=== PATIENT | male | born 1995 | race Two or more races ===

== ENCOUNTER → 2020-01-12 | Outpatient (CLI) | payer OTHER | END | disposition home or self-care (01) | LOC: LAB 13:05 | PROVIDERS: ATTEND Nurse Practitioner Family | DX: Z20.828 Contact with and (suspected) exposure to other viral communicable diseases (principal) | CPT/HCPCS: C9803; U0003 ==

== ENCOUNTER 2020-03-11 07:59 | Emergency (ER) | payer OTHER ==
[~2020-03-11] VITALS: Ht 177.8 cm; Wt 71.7 kg
[2020-03-11 08:33] VITALS: BP 127/71
== END 2020-03-11 09:24 | disposition home or self-care (01) ==
LOC: ER 07:59 → EEVIPCON 07:59 → ER 09:24
DX: R51.9 Headache, unspecified (principal); H60.91 Unspecified otitis externa, right ear; W00.0XXA Fall on same level due to ice and snow, initial encounter; Y93.89 Activity, other specified; Y92.89 Other specified places as the place of occurrence of the external cause; Y99.8 Other external cause status
CPT/HCPCS: 70450

== ENCOUNTER 2020-03-20 10:07 | Emergency (ER) | payer OTHER ==
[~2020-03-20] VITALS: Ht 177.8 cm; Wt 71.2 kg
[2020-03-20 10:12] VITALS: BP 112/70
== END 2020-03-20 11:42 | disposition home or self-care (01) ==
LOC: EEVIPCON 10:07 → ER 10:07
DX: S09.90XD Unspecified injury of head, subsequent encounter (principal); X58.XXXD Exposure to other specified factors, subsequent encounter
CPT/HCPCS: 70450

== ENCOUNTER 2020-08-27 07:56 | Emergency (ER) | payer OTHER ==
[~2020-08-27] VITALS: Ht 177.8 cm; Wt 72.6 kg
[2020-08-27] MEDS ORDERED: cefTRIAXone 1GM/50ML D5W 50 ML IV ONE (08:15)
[2020-08-27] MEDS ORDERED: methylPREDNISolone SOD SUCC 125 MG/2 ML VL IV ONE (08:15)
[2020-08-27] MEDS ORDERED: SODIUM CHLORIDE 0.9% 1,000 ML IV ONE (08:15)
[2020-08-27 08:22] VITALS: BP 123/69
[2020-08-27 08:59] LABS: BUN/Creatinine Ratio 19.2; Calcium 8.4 mg/dL (8.5-10.1); Potassium 4.1 mmol/L (3.5-5.1)
[2020-08-27 09:43] LABS: Hemoglobin 13.9 g/dL (13.5-17.5); Mean Corpuscular Hemoglobin 31.2 pg (28.0-32.0); Mean Corpuscular Volume 85.9 fL (80.0-100.0); Red Blood Cells 4.46 10^6/uL (4.5-5.90); Red Cell Distribution Width 13.3 % (11.8-14.3); White Blood Cell 8.5 10^3/uL (4.4-10.8)
[2020-08-27 09:46] LABS: Hematocrit 38.7 % (41.0-53.0)
[2020-08-27 09:48] LABS: Basophils % (manual) 0 (0.0-2.0); Blast Cells 0; Monocytes % (manual) 0 (0-12); Myelocytes % 0; Promyelocytes % 0
[2020-08-27 11:46] LABS: Band Neutrophils % (manual) 3; Lymphocytes % (manual) 44 (10.0-50.0)
[2020-08-27 11:47] LABS: Eosinophils % (manual) 1 (0-7); Metamyelocytes % 1; Reactive Lymphocytes 7
== END 2020-08-27 10:34 | disposition home or self-care (01) ==
LOC: ER 07:56
DX: J01.90 Acute sinusitis, unspecified (principal); J03.90 Acute tonsillitis, unspecified; H92.01 Otalgia, right ear
CPT/HCPCS: 36415; 71046; 80048; 85007; 85027; 85049; 87070; 87880; 96365; 96375; 99284; J0696; J2930; J7030

== ENCOUNTER 2022-08-30 13:46 | Emergency (ER) | payer BC, OTHER ==
[~2022-08-30] VITALS: Ht 177.8 cm; Wt 79.5 kg
[2022-08-30] MEDS ORDERED: IOHEXOL 300 MG/ML 100ML BOTTLE IJ ONE (14:10)
[2022-08-30] MEDS ORDERED: SODIUM CHLORIDE 0.9% 1,000 ML IV ONE (14:15)
[2022-08-30 14:17] LABS: Basophils # (auto) 0 10 ^3/uL (0-0.2); Basophils % (auto) 0.3 % (0.0-2.0); Eosinophils # (auto) 0.1 10 ^3/uL (0-0.8); Eosinophils % (auto) 1.4 % (0.0-7.0); Hematocrit 48.6 % (41.0-53.0); Hemoglobin 17.3 g/dL (13.5-17.5); Lymphocytes # (auto) 1.5 10 ^3/uL (0.4-5.4); Lymphocytes % (auto) 22.4 % (10.0-50.0); Mean Corpuscular Hemoglobin 30.9 pg (28.0-32.0); Mean Corpuscular Hgb Conc. 35.6 g/dL (32.0-36.0); Mean Corpuscular Volume 86.8 fL (80.0-100.0); Monocytes # (auto) 0.9 10 ^3/uL (0-1.3); Monocytes % (auto) 13.3 % (0.0-12.0); Neutrophils # (auto) 4.1 10 ^3/uL (1.6-8.6); Neutrophils % (auto) 62.6 % (37.0-80.0); Nucleated Red Blood Cells % 0.4 %; Red Cell Distribution Width 12.9 % (11.8-14.3); White Blood Cell 6.6 10^3/uL (4.4-10.8)
[2022-08-30 15:10] LABS: Albumin 4.4 g/dL (3.4-5.0); Calcium 8.7 mg/dL (8.5-10.1); Potassium 3.4 mmol/L (3.5-5.1)
[2022-08-30] MEDS ORDERED: CIPR-173 PO (15:13)
[2022-08-30 15:15] LABS: BUN/Creatinine Ratio 13.1 (10.0-20.0); Bilirubin, Total 0.9 mg/dL (0.2-1.0); Total Protein 8.1 g/dL (6.4-8.2)
[2022-08-30 15:34] VITALS: BP 120/61
[2022-08-30 15:53] LABS: Urine Bacteria NONE SEEN /hpf (None Seen); Urine Blood Negative /uL (Negative); Urine WBC <1 /hpf (0 - 3)
[2022-08-30 15:57] LABS: Urine Specific Gravity > 1.050 (1.001-1.035)
== END 2022-08-30 16:05 | disposition home or self-care (01) ==
LOC: EEVIPCON 13:46 → ER 13:46
DX: K52.9 Noninfective gastroenteritis and colitis, unspecified (principal); Z88.1 Allergy status to other antibiotic agents; Z90.49 Acquired absence of other specified parts of digestive tract
CPT/HCPCS: 36415; 74177; 80053; 81001; 82150; 83690; 85025; 96360; 99285; J7030; Q9967

== ENCOUNTER 2023-11-17 13:50 | Emergency (ER) | payer BC ==
[~2023-11-17] VITALS: Ht 177.8 cm; Wt 80.3 kg
[~2023-11-17 13:50] MED LIST: CIPR-173 PO
[2023-11-17 14:58] LABS: Urine Bacteria None Seen /hpf (None Seen)
[2023-11-17 15:06] VITALS: TEMP 98
[2023-11-17 15:13] LABS: Urine Blood TRACE /uL (Negative); Urine Clarity Clear (Clear); Urine Color Colorless (Yellow); Urine Protein, UAD Negative (Negative); Urine Specific Gravity 1.007 (1.001-1.035); Urine Urobilinogen Normal (Negative); Urine WBC <1 /hpf (0 - 3)
[2023-11-17] MEDS: ONDANSETRON HCL 4 MG/2 ML VIAL IV ONE (15:13)
[2023-11-17] MEDS: MEPERIDINE HCL (25 MG/ML) 1ML VIAL IV ONE (15:37)
[2023-11-17] MEDS: SODIUM CHLORIDE 0.9% 1,000 ML IV ONE (15:37)
[2023-11-17] MEDS ORDERED: CYCL-839 PO (16:40)
[2023-11-17] MEDS ORDERED: HYDR-4902 PO (16:40)
[2023-11-17 16:42] VITALS: BP 103/58; PULSE 63; RESP 16; O2SAT 98
== END 2023-11-17 16:59 | disposition home or self-care (01) ==
LOC: EEVIPCON 13:50 → ER 13:50
DX: S16.1XXA Strain of muscle, fascia and tendon at neck level, initial encounter (principal); Z79.899 Other long term (current) drug therapy; Z90.49 Acquired absence of other specified parts of digestive tract; Z88.1 Allergy status to other antibiotic agents; X50.0XXA Overexertion from strenuous movement or load, initial encounter; Y93.89 Activity, other specified; Y92.89 Other specified places as the place of occurrence of the external cause; Y99.8 Other external cause status
CPT/HCPCS: 72125; 72128; 81001; 96361; 96374; 96375; 99285; J2175; J2405; J7030

== ENCOUNTER 2024-01-25 22:12 | Emergency (ER) | payer BC ==
[~2024-01-25] VITALS: Ht 175.3 cm; Wt 81.0 kg
[~2024-01-25 22:12] MED LIST changes: +CYCL-839 PO; +HYDR-4902 PO
--- NOTE | 2024-01-25 22:38 | ED.PDOC ---
GI ASSESSMENT HPI Comments 28 year old male came to ER due to abdominal pain. Patient states few hours ago, he started having episodes of loose watery diarrhea, followed by nausea, vomiting and cramping epigastric abdominal pain. Chief Complaint: Abdominal Pain Time Seen by MD: 22:37 Primary Care Provider: [facility] Reviewed Notes: Nurses Notes Allergies: Coded Allergies: Amoxicillin (Verified Allergy, Unknown, 08/30/22) Penicillins (Verified Allergy, Unknown, 01/25/24) Home Meds Active Scripts Loperamide Hcl (Imodium) 2 Mg Cp, 2 MG PO Q4HP PRN for 10 Days, #30 CAP Prov:ADELITA GRAVES MD 01/26/24 Ondansetron Odt 4MG Tab (ZOFRAN PO) 4 Mg Tb, 8 MG PO Q6HP PRN for 10 Days, #40 T AB ODT TAB-DISSOLVE IN MOUTH, THEN SWALLOW Prov:ADELITA GRAVES MD 01/26/24 Hydrocodone-Acetaminophen (Hydrocodone Bitartrate/AC 5-325 mg) 1 Tab Tab, 1 TAB PO BID, #20 TAB Prov:DRE WALTON 11/17/23 Cyclobenzaprine Hcl (Cyclobenzaprine Hcl) 10 Mg Tab, 10 MG PO BID, #30 TAB Prov:DRE WALTON 11/17/23 Ciprofloxacin Hcl (Cipro) 500 Mg Tab, 1 TAB PO BID, #14 TAB Prov:PAULA LUO MD 08/30/22 Information Source: Patient Mode of Arrival: Ambulatory Timing: Hours Duration: Since onset Prehospital treatment: None Quality: Aching, Cramping Vomitus: Watery Stool: Loose, Watery Severity: Moderate Recent: Possible spoiled food Recent Hx of: Abdominal Surgery Pain Location: Epigastric Modifying Factors: Nothing Associated sign and symptoms: Nausea, Vomiting, Diarrhea, Abdominal Pain Past Medical History Past Medical History (Other): Henoch Schonlein Purpura Surgical History: Appendectomy Family History Family History: Reviewed,noncontributory to illness Social History Smoker: Non-Smoker Alcohol: Occasionally Drugs: Denies Drug Use Lives In: Home Constitutional: reports: fatigue, weakness; denies: chills, diaphoresis, fever, malaise, sweats, others EENTM: denies: blurred vision, double vision, ear bleeding, ear discharge, ear drainage, ear pain, ear ringing, eye pain, eye redness, hearing loss, mouth pain, mouth swelling, nasal discharge, nose bleeding, nose congestion, nose pain, photophobia, tearing, throat pain, throat swelling, voice changes, others Respiratory: denies: cough, hemoptysis, orthopnea, SOB at rest, shortness of breath, SOB with excertion, stridor, wheezing, others Cardiovascular: denies: chest pain, dizzy spells, diaphoresis, Dyspnea on exertion, edema, irregular heart beat, left arm pain, lightheadedness, pa lpitations, PND, syncope, others Gastrointestinal: reports: abdominal pain, diarrhea, nausea, vomiting; denies: abdomen distended, blood streaked bowels, constipated, dysphagia, difficulty swallowing, hematemesis, melena, poor appetite, poor fluid intake, rectal bleeding, rectal pain, others Genitourinary: denies: burning, dysuria, flank pain, frequency, hematuria, incontinence, penile discharge, penile sore, pain, testicle pain, testicle swelling, urgency, others Neurological: denies: dizziness, fainting, headache, left sided numbness, left sided weakness, numbness, paresthesia, pre-existing deficit, right sided numbness, right sided weakness, seizure, speech problems, tingling, tremors, weakness, others Musculoskeletal: denies: back pain, gout, joint pain, joint swelling, muscle pain, muscle stiffness, neck pain, others Integumetry: denies: bruises, change in color, change in hair/nails, dryness, laceration, lesions, lumps, rash, wounds, others Allergic/Immunocompromised: denies: Difficulty Healing, Frequent Infections, Hives, Itching, others Hematologic/Lymphatic: denies: anemia, blood clots, easy bleeding, easy bruising, swollen glands, others Endocrine: denies: excessive hunger, excessive sweating, excessive thirst, excessive urination, flushing, intolerance to cold, intolerance to heat, unexplained weight gain, unexplained weight loss, others Psychiatric: denies: anxiety, bipolar disorder, depression, hopeless, panic disorder, schizophrenia, sleepless, suicidal, others Physical Exam General Appearance: Moderate Distress, Normal HEENT: Normal ENT Inspection, Pharynx Normal, TMs Normal Neck: Full Range of Motion, Non-Tender, Normal, Normal Inspection Respiratory: Chest Non-Tender, Lungs Clear, No Accessory Muscle Use, No Respiratory Distress, Normal Breath Sounds Cardiovascular: No Edema, No JVD, No Murmur, No Gallop, Normal Peripheral Pulses, Regular Rate/Rhythm Breast Exam: Deferred Gastrointestinal: Abnormal Bowel Sounds, Non Tender, Soft Genitalia: Deferred Pelvic: Deferred Rectal: Deferred Extremities: No calf tenderness, Normal capillary refill, Normal inspection, Normal range of motion, Non-tender, No pedal edema Musculoskeletal : Apperance: Normal Neurologic: Alert, head of sales promotion II-XII nml as Tested, No Motor Deficits, Normal Affect, Normal Mood, No Sensory Deficits Cerebellar Function: Normal Reflexes: Normal Skin: Dry, Normal Color, Warm Lymphatic: No Adenopathy Was a procedure done? Was a procedure done?: No GI differential Dx Differential Diagnosis: Diverticular disease, Gastritis/PUD, Gastroenteritis, Dehydration, Electrolyte Imbalance, Food Poisoning X-Ray, Labs, Meds, VS Vital Signs Date Time Temp Pulse Resp B/P (MAP) Pulse Ox O2 Delivery O2 Flow Rate FiO2 01/25/24 23:19 92/47 (62) 01/25/24 23:16 Room Air* 0 21 01/25/24 23:10 97.5 102 20 74/33 (47) 97 97.5 01/25/24 22:30 100.1 105 18 106/64 (78) 99 Lab Test 01/26/24 00:14 01/25/24 22:50 Range/Units White Blood Count 16.5 H 4.4-10.8 10^3/uL Red Blood Count 5.30 4.5-5.90 10^6/uL Hemoglobin 16.3 13.5-17.5 g/dL Hematocrit 47.2 41.0-53.0 % Mean Corpuscular Volume 89.0 80.0-100.0 fL Mean Corpuscular Hemoglobin 30.7 28.0-32.0 pg Mean Corpuscular Hemoglobin Concent 34.5 32.0-36.0 g/dL Red Cell Distribution Width 13.4 11.8-14.3 % Platelet Count 141 140-450 10^3/uL Mean Platelet Volume 7.9 6.9-10.8 fL Neutrophils (%) (Auto) 88.8 H 37.0-80.0 % Lymphocytes (%) (Auto) 4.1 L 10.0-50.0 % Monocytes (%) (Auto) 6.5 0.0-12.0 % Eosinophils (%) (Auto) 0.4 0.0-7.0 % Basophils (%) (Auto) 0.2 0.0-2.0 % Neutrophils # (Auto) 14.7 H 1.6-8.6 10 ^3/uL Lymphocytes # (Auto) 0.7 0.4-5.4 10 ^3/uL Monocytes # (Auto) 1.1 0-1.3 10 ^3/uL Eosinophils # (Auto) 0.1 0-0.8 10 ^3/uL Basophils # (Auto) 0 0-0.2 10 ^3/uL Nucleated Red Blood Cells 0.0 % Sodium Level 141 136-145 mmol/L Potassium Level 3.9 3.5-5.1 mmol/L Chloride Level 104 98-107 mmol/L Carbon Dioxide Level 25 20-31 mmol/L Anion Gap 12 5-15 Blood Urea Nitrogen 10 9-23 mg/dL Creatinine 1.48 H 0.700-1.30 mg/dL Glomerular Filtration Rate Calc 66 >90 mL/min BUN/Creatinine Ratio 6.8 L 10.0-20.0 Serum Glucose 128 H 74-106 mg/dL Calcium Level 11.1 H 8.7-10.4 mg/dL Magnesium Level 2.3 1.6-2.6 mg/dL Total Bilirubin 1.1 H 0.2-1.0 mg/dL Aspartate Amino Transferase (AST) 40 13-40 U/L Alanine Aminotransferase (ALT) 75 H 7-40 U/L Alkaline Phosphatase 109 46-116 U/L Total Protein 9.1 H 5.7-8.2 g/dL Albumin 5.8 H 3.2-4.8 g/dL Current Medications Medications (Trade) Dose Ordered Sig/Grupo Route Start Time Stop Time Status Last Admin Ondansetron HCl (Zofran) 4 mg ONCE ONCE IV 01/25/24 22:45 01/25/24 22:46 DC 01/25/24 22:58 Sodium Chloride 1,000 ml @ 1,000 mls/hr Q1H ONCE IVB 01/25/24 22:45 01/25/24 23:44 DC 01/25/24 22:55 Acetaminophen (Tylenol Tablet) 1,000 mg ONCE ONCE PO 01/25/24 22:45 01/25/24 22:46 DC 01/25/24 23:10 Loperamide HCl (Imodium Capsule) 4 mg ONCE ONCE PO 01/25/24 22:45 01/25/24 22:46 DC 01/25/24 23:03 Sodium Chloride 1,000 ml @ 1,000 mls/hr Q1H ONCE IV 01/25/24 23:30 01/26/24 00:29 DC 01/25/24 23:29 Time of 1ST Reevaluation: 22:34 Reevaluation 1ST: Unchanged Time of 2ND Reevaluation: 00:25 Reevaluation 2ND: Improved Patient Education/Counseling: Diagnosis, Treatment Family Education/Counseling: Diagnosis, Treatment Sepsis Sepsis Reasesment Focused Exam Sepsis focused exam: focus exam completed, time: (29) Departure 1 Departure Time of Disposition: 00:55 Impression: Primary Impression: Nausea vomiting and diarrhea Additional Impression: Dehydration Disposition: 01 HOME / SELF CARE / HOMELESS Condition: Stable e-Prescriptions Loperamide Hcl (Imodium) 2 Mg Cp 2 MG PO Q4HP PRN for 10 Days, #30 CAP Prov: ADELITA GRAVES MD 01/26/24 Ondansetron Odt 4MG Tab (ZOFRAN PO) 4 Mg Tb 8 MG PO Q6HP PRN for 10 Days, #40 TAB ODT TAB-DISSOLVE IN MOUTH, THEN SWALLOW Prov: ADELITA GRAVES MD 01/26/24 Discharged With: Self Critical Care Note Critical Care Time?: No Stability Stability form required: No Heart Score Heart Score: Heart Score Response (Comments) Value History N/A 0 EKG N/A 0 Age N/A 0 Risk Factors N/A 0 Troponin N/A 0 Total 0 I personally scribed for ADELITA GRAVES MD ([email or web address]) on 01/25/24 at 22:38. Electronically submitted by Olaf Owens ([email or web address]). ADELITA GRAVES MD Jan 25, 2024 22:38
[2024-01-25] MEDS: SODIUM CHLORIDE 0.9% 1,000 ML IVB ONE (22:55)
[2024-01-25] MEDS: ONDANSETRON HCL 4 MG/2 ML VIAL IV ONE (22:58)
[2024-01-25] MEDS: LOPERAMIDE HCL 2 MG CAP/TAB PO ONE (23:03)
[2024-01-25] MEDS: ACETAMINOPHEN 500 MG TAB PO ONE (23:10)
[2024-01-25] MEDS: SODIUM CHLORIDE 0.9% 1,000 ML IV ONE (23:29)
[2024-01-25 23:34] LABS: Alanine Aminotransferase 75 U/L (7-40); Albumin 5.8 g/dL (3.2-4.8); Alkaline Phosphatase 109 U/L (46-116); Anion Gap 12 (5-15); Aspartate Aminotransferase 40 U/L (13-40); BUN/Creatinine Ratio 6.8 (10.0-20.0); Blood Urea Nitrogen 10 mg/dL (9-23); Calcium 11.1 mg/dL (8.7-10.4); Carbon Dioxide 25 mmol/L (20-31); Chloride 104 mmol/L (98-107); Glucose 128 mg/dL (74-106); Magnesium 2.3 mg/dL (1.6-2.6); Potassium 3.9 mmol/L (3.5-5.1); Sodium 141 mmol/L (136-145)
[2024-01-25 23:35] LABS: Bilirubin, Total 1.1 mg/dL (0.2-1.0); Total Protein 9.1 g/dL (5.7-8.2)
[2024-01-26 00:30] LABS: Basophils # (auto) 0 10 ^3/uL (0-0.2); Basophils % (auto) 0.2 % (0.0-2.0); Eosinophils # (auto) 0.1 10 ^3/uL (0-0.8); Eosinophils % (auto) 0.4 % (0.0-7.0); Hematocrit 47.2 % (41.0-53.0); Hemoglobin 16.3 g/dL (13.5-17.5); Lymphocytes # (auto) 0.7 10 ^3/uL (0.4-5.4); Lymphocytes % (auto) 4.1 % (10.0-50.0); Mean Corpuscular Hemoglobin 30.7 pg (28.0-32.0); Mean Corpuscular Hgb Conc. 34.5 g/dL (32.0-36.0); Monocytes # (auto) 1.1 10 ^3/uL (0-1.3); Monocytes % (auto) 6.5 % (0.0-12.0); Neutrophils # (auto) 14.7 10 ^3/uL (1.6-8.6); Neutrophils % (auto) 88.8 % (37.0-80.0); Platelet Count (auto) 141 10^3/uL (140-450); Red Cell Distribution Width 13.4 % (11.8-14.3); White Blood Cell 16.5 10^3/uL (4.4-10.8)
[2024-01-26] MEDS ORDERED: ZOFR4T PO (00:48)
[2024-01-26] MEDS ORDERED: LOPE2CAP16 PO (00:49)
[2024-01-26 00:52] VITALS: PULSE 102; RESP 14; O2SAT 98
[2024-01-26 00:54] VITALS: BP 100/54; PULSE 102; RESP 14; TEMP 97.5; O2SAT 98
== END 2024-01-26 01:06 | disposition home or self-care (01) ==
LOC: EEVIPCON 22:17 → ER 22:17
DX: E86.0 Dehydration (principal); R11.2 Nausea with vomiting, unspecified; R19.7 Diarrhea, unspecified; Z90.49 Acquired absence of other specified parts of digestive tract; Z88.0 Allergy status to penicillin; Z88.1 Allergy status to other antibiotic agents; Z79.899 Other long term (current) drug therapy
CPT/HCPCS: 36415; 80053; 83735; 96361; 96374; 99283; J2405; J7030

== ENCOUNTER → 2024-07-02 | Outpatient (CLI) | payer OTHER ==
[~2024-07-02] MED LIST changes: +LOPE2CAP16 PO; +ZOFR4T PO
[2024-07-03 08:07] LABS: Rubeola IgG Antibody >300.0 AU/mL (Immune >16.4); Varicella Zoster IgG Antibody Reactive (Non Reactive)
== END | disposition home or self-care (01) ==
LOC: LAB 11:40
PROVIDERS: ATTEND Registered Nurse
DX: Z01.84 Encounter for antibody response examination (principal)
CPT/HCPCS: 36415; 86706; 86735; 86762; 86765; 86787

== ENCOUNTER 2024-08-01 14:18 | Emergency (ER) | payer BC, OTHER ==
[~2024-08-01] VITALS: Ht 175.3 cm; Wt 82.9 kg
[2024-08-01 15:20] LABS: Albumin 5.2 g/dL (3.2-4.8); Bilirubin, Direct 0.2 mg/dL (<0.3); Bilirubin, Total 0.5 mg/dL (0.2-1.0); Total Protein 7.5 g/dL (5.7-8.2)
[2024-08-01 15:44] LABS: Hepatitis B Surface Antibody Positive (Negative); Hepatitis B Surface Antigen Negative (Negative)
[2024-08-01] MEDS: AMOXICILLIN/CLAVUL 875 MG TAB PO ONE (16:58)
[2024-08-01] MEDS ORDERED: AUG875T PO (16:59)
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
[2024-08-01] MEDS: diphenhdrAMINE HCL 25 MG CAP PO ONE (17:50)
[2024-08-01 18:05] VITALS: BP 113/69; PULSE 74; RESP 18; TEMP 98; O2SAT 97
== END 2024-08-01 18:08 | disposition home or self-care (01) ==
LOC: EEVIPCON 14:18 → ER 14:18
DX: S50.12XA Contusion of left forearm, initial encounter (principal); S51.852A Open bite of left forearm, initial encounter; Z98.890 Other specified postprocedural states; Z88.0 Allergy status to penicillin; Z79.899 Other long term (current) drug therapy; Z86.2 Personal history of diseases of the blood and blood-forming organs and certain disorders involving the immune mechanism; W50.3XXA Accidental bite by another person, initial encounter; Y93.89 Activity, other specified; Y92.89 Other specified places as the place of occurrence of the external cause; Y99.8 Other external cause status
CPT/HCPCS: 36415; 80076; 86703; 86706; 86803; 87340